=== PATIENT | male | born 1970 | race Caucasian/White ===

== ENCOUNTER 2016-11-14 07:24 | Emergency (ER) | payer OTHER ==
[2016-11-14 07:41] VITALS: BMI 29.2
[2016-11-14] MEDS ORDERED: Sodium Chloride 0.9% 1,000 ML IV ONE (09:01)
[2016-11-14] MEDS ORDERED: Aluminum Hydroxide/Magnesium Hydroxide Susp (30 mL) PO STA (09:01)
[2016-11-14 09:25] LABS: BASO % 0.4 % (0.0-2.0); EOS # 0.2 K/uL (0.0-0.7); EOS % 5.3 % (0.0-4.0); HEMATOCRIT 38.3 % (35.0-51.0); LYMPH % 46.8 % (20.0-40.0); MEAN CELL VOLUME 84.5 fL (80.0-94.0); MEAN CORPUSCULAR HEMOGLOBIN 29.4 pg (27.0-31.0); MEAN CORPUSCULAR HGB CONC 34.7 g/dL (33.0-37.0); MEAN PLATELET VOLUME 7.8 fL (7.2-11.7); MONO # 0.3 K/uL (0.0-0.8); MONO % 6.3 % (0.0-10.0); NRBC % 0.1 % (0.0-2.0); RED CELL DISTRIBUTION WIDTH 12.3 % (11.5-14.5); WHITE BLOOD COUNT 4.2 K/uL (4.8-10.8)
[2016-11-14 09:31] LABS: CHLORIDE 103 mmol/L (98-107); SODIUM 139 mmol/L (132-148)
[2016-11-14 09:32] LABS: POTASSIUM 3.8 mmol/L (3.6-5.2)
[2016-11-14 09:34] LABS: CARBON DIOXIDE 24 mmol/L (22-30); GFR AFRICAN-AMERICAN > 60
[2016-11-14 09:35] LABS: BLOOD UREA NITROGEN 20 mg/dL (9-20); CALCIUM 8.5 mg/dl (8.6-10.4); GLUCOSE,RANDOM 100 mg/dL (75-110)
--- NOTE | 2016-11-14 10:39 | C.PDOC ---
History Of Present Illness 46 year old patient, with a past medical history of back problems and kidney stones in 2013, presents to the ED complaining of epigastric pain for the past 8 days. Patient states he has associated symptoms of cough, production of phlegm , nausea, and vomiting for the past 3 days. Patient reports there is a burning sensation and rates the pain 8/10. Patient denies blood in stool, fever, chills , headache, neck pain, chest pain, diarrhea, dysuria, or shortness of breath. Time Seen by Provider: 11/14/16 08:02 Chief Complaint (Nursing): Abdominal Pain History Per: Patient History/Exam Limitations: no limitations Onset/Duration Of Symptoms: Days (8), Worse Since (3 days ago) Current Symptoms Are (Timing): Still Present Context: Other Severity: Severe Pain Scale Rating Of: 8 Location Of Pain/Discomfort: Epigastric Radiation Of Pain To:: None Quality Of Discomfort: Burning, "Pain" Associated Symptoms: Nausea, Vomiting Exacerbating Factors: Cough Alleviating Factors: None Last Bowel Movement: Today Recent travel outside of the [place]: No Past Medical History Reviewed: Historical Data, Nursing Documentation, Vital Signs Vital Signs: Last Vital Signs Temp 97.6 F 11/14/16 12:19 Pulse 66 11/14/16 12:19 Resp 16 11/14/16 12:19 BP 111/68 11/14/16 12:19 Pulse Ox 97 11/14/16 12:19 - Medical History PMH: Back Problems, Kidney Stones - [facility] Procedures VACCINATION NEC (04/09/14) Family History: States: Unknown Family Hx - Social History Hx Tobacco Use: No Hx Alcohol Use: No Hx Substance Use: No - Immunization History Hx Tetanus Toxoid Vaccination: No Hx Influenza Vaccination: No Hx Pneumococcal Vaccination: No Review Of Systems Except As Marked, All Systems Reviewed And Found Negative. Constitutional: Negative for: Fever, Chills Cardiovascular: Negative for: Chest Pain Respiratory: Negative for: Shortness of Breath Gastrointestinal: Positive for: Nausea, Vomiting, Abdominal Pain. Negative for : Diarrhea Genitourinary: Negative for: Dysuria Musculoskeletal: Negative for: Neck Pain Neurological: Negative for: Headache Physical Exam - Physical Exam Appears: Non-toxic, No Acute Distress Skin: Warm, Dry Head: Atraumatic, Normacephalic Oral Mucosa: Moist Neck: Normal ROM, Supple Chest: Symmetrical Cardiovascular: Rhythm Regular Respiratory: Normal Breath Sounds, No Rales, No Rhonchi, No Wheezing Gastrointestinal/Abdominal: Soft, Tenderness (mild epigastric), No Guarding, No Rebound Back: Normal Inspection, No CVA Tenderness Extremity: Normal ROM Neurological/Psych: Oriented x3, Normal Motor, Normal Sensation Gait: Steady ED Course And Treatment - Laboratory Results Result Diagrams: 11/14/16 09:21 11/14/16 09:21 O2 Sat by Pulse Oximetry: 99 (room air) Pulse Ox Interpretation: Normal Progress Note: Plan: -Labs. -Chest x-ray. -Maalox, Pepcid, IV fluids. - Influenza A B stat. -Reassess and disposition Medical Decision Making Medical Decision Making: patient feeling better Disposition - Disposition Referrals: [facility] [Outside] Disposition: HOME/ ROUTINE Disposition Time: 12:56 Condition: STABLE Prescriptions: Ondansetron ODT [Zofran ODT] 1 odt PO BID PRN #6 odt PRN Reason: Nausea/Vomiting Instructions: Viral Syndrome (ED) Forms: General Discharge Instructions - POA Present On Arrival: None - Clinical Impression Clinical Impression: Nausea, Abdominal pain, Viral syndrome - Scribe Statement The provider has reviewed the documentation as recorded by the Scribadilia Nava Provider Attestation: All medical record entries made by the Scribe were at my direction and personally dictated by me. I have reviewed the chart and agree that the record accurately reflects my personal performance of the history, physical exam, medical decision making, and the department course for this patient. I have also personally directed, reviewed, and agree with the discharge instructions and disposition.
[2016-11-14] MEDS ORDERED: Sodium Chloride 0.9% 1,000 ML ONE (11:20)
[2016-11-14] MEDS ORDERED: Aluminum Hydroxide/Magnesium Hydroxide Susp (30 mL) ONE (11:20)
--- NOTE | 2016-11-14 11:49 | RAD ---
HISTORY: Cough. COMPARISON: 10/24/2014. TECHNIQUE: PA/lateral views. FINDINGS: LUNGS: No active pulmonary disease. PLEURA: No significant pleural effusion identified. No pneumothorax apparent. CARDIOVASCULAR: Normal. OSSEOUS STRUCTURES: No significant abnormalities. VISUALIZED UPPER ABDOMEN: Normal. OTHER FINDINGS: None. IMPRESSION: No active disease. No significant interval change compared to the prior examination(s).
[2016-11-14 12:20] VITALS: BP 111/68; PULSE 66; RESP 16; TEMP 97.6
[2016-11-14 12:57] VITALS: O2SAT 99
--- NOTE | 2016-11-21 13:49 | CARD ---
APPROVED REPORT EKG Measurement Heart [id number] [id number] <Conclusion> Normal sinus rhythm Normal ECG
== END 2016-11-14 13:10 | disposition home or self-care (01) ==
LOC: C.ER 07:24
DX: B34.9 Viral infection, unspecified (principal)
CPT/HCPCS: 71020; 80048; 83690; 85025; 87804; 94770; 96361; 96374; 99284; J7040

== ENCOUNTER 2018-07-31 10:23 | Emergency (ER) | payer MEDICAID, OTHER | END 2018-07-31 12:43 | disposition home or self-care (01) | LOC: C.ER 10:23 ==